=== PATIENT | female | born 2000 | race Two or more races ===

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

== ENCOUNTER 2021-11-10 17:50 | Emergency (ER) | payer BC | END 2021-11-10 18:13 | disposition left against medical advice (07) | LOC: DL.ED 17:50 | DX: Z53.21 Procedure and treatment not carried out due to patient leaving prior to being seen by health care provider (principal) ==